=== PATIENT | male | born 1990 | race Caucasian/White ===

== ENCOUNTER 2019-11-27 08:35 | Emergency (ER) | payer BC ==
[2019-11-27] MEDS ORDERED: TESTOSTERO200 MG/11 IM (08:47)
[2019-11-27 09:32] LABS: BASO # 0.1 (0.02-0.10); EOS # 0.1 (0.04-0.40); EOS % 1.3 % (0.0-4.0); HEMATOCRIT 52.5 % (42.0-52.0); HEMOGLOBIN 17.1 g/dL (13.5-18.0); LYMPH# 1.5 (1.50-4.00); MEAN CELL VOLUME 92 fl (78-100); MEAN CORPUSCULAR HEMOGLOBIN 30 pg (27-31); MEAN CORPUSCULAR HGB CONC 33 g/dL (33-37); MEAN PLATELET VOLUME 10.9 fl (7.4-10.4); MONO # 0.6 (0.20-0.80); PLATELET COUNT 168 K/mm3 (130-400); RED BLOOD COUNT 5.69 M/mm3 (4.20-5.60); RED CELL DISTRIBUTION WIDTH 14.1 % (11.5-14.5); WHITE BLOOD COUNT 6.4 K/mm3 (4.8-10.8)
[2019-11-27 09:41] LABS: ALBUMIN 4.6 g/dL (3.5-5.0)
[2019-11-27 09:42] LABS: POTASSIUM 4.4 mmol/L (3.5-5.1)
[2019-11-27 09:43] LABS: CALCIUM 9.2 mg/dL (8.3-10.5)
[2019-11-27 09:44] LABS: TOTAL PROTEIN 7.2 g/dL (6.4-8.3)
[2019-11-27 09:46] LABS: TOTAL BILIRUBIN 0.3 mg/dL (0.2-1.2)
[2019-11-27] MEDS ORDERED: CEFDINIR300 MG PO (11:30)
[2019-11-27] MEDS ORDERED: NORCO 325 MG-51 TA1 PO (11:30)
[2019-11-27] MEDS ORDERED: FLOMAX0.4 MG PO (11:30)
[2019-11-27 11:56] VITALS: BP 156/106
== END 2019-11-27 11:57 | disposition home or self-care (01) ==
LOC: ED 08:35
PROVIDERS: Nurse Practitioner Primary Care
DX: N20.0 Calculus of kidney (principal); F17.200 Nicotine dependence, unspecified, uncomplicated; Z79.52 Long term (current) use of systemic steroids
CPT/HCPCS: J0696; J1885; J7030; Q9967